=== PATIENT | male | born 1950 ===

== ENCOUNTER 2017-06-20 07:29 | Outpatient (CLI) | payer OTHER ==
[~2017-06-20] VITALS: Ht 170.2 cm; Wt 79.4 kg
[2017-06-20] MEDS ORDERED: ZANTAC300 MG PO (09:34)
[2017-06-20] MEDS ORDERED: NAPROXEN SODIU550 M1 PO (09:34)
== END 2017-06-20 07:45 | disposition home or self-care (01) ==
LOC: OFIC 805 07:29
DX: J31.0 Chronic rhinitis (principal); J34.2 Deviated nasal septum; H92.01 Otalgia, right ear; H93.11 Tinnitus, right ear; H90.3 Sensorineural hearing loss, bilateral; G50.1 Atypical facial pain

== ENCOUNTER 2017-07-18 10:43 | Outpatient (CLI) | payer OTHER ==
[~2017-07-18] VITALS: Ht 152.4 cm; Wt 79.4 kg
[~2017-07-18 10:43] MED LIST: NAPROXEN SODIU550 M1 PO; ZANTAC300 MG PO
== END 2017-07-18 11:00 | disposition home or self-care (01) ==
LOC: OFIC 805 10:43
DX: J31.0 Chronic rhinitis (principal); H90.3 Sensorineural hearing loss, bilateral; H93.13 Tinnitus, bilateral

== ENCOUNTER 2020-10-04 10:07 | Outpatient (CLI) | payer OTHER | END 2020-10-04 15:00 | disposition home or self-care (01) | LOC: LAB 10:07 | DX: B35.1 Tinea unguium (principal) ==